=== PATIENT | female | born 1950 | race Caucasian/White ===

== ENCOUNTER 2019-03-22 05:44 | Day surgery (SDC) | payer MEDICARE, BC ==
[2019-03-22] VITALS (9 sets, daily range): BP systolic 125–150; BP diastolic 64–80; PULSE 57–64; RESP 12–18; Ht 152.4 cm; Wt 72.7 kg
[~2019-03-22] VITALS: Ht 152.4 cm; Wt 72.7 kg
--- NOTE | 2019-03-22 03:04 | PREAC ---
Date/Time of Note Date/Time of Note DATE: 03/22/19 TIME: 03:02 Anesthesia Eval and Record Evaluation Time Pre-Procedure Interview DATE: 03/22/19 TIME: 03:02 Age 68 Sex female NPO: 8 hrs Preoperative diagnosis right eye cataract Planned procedure right eye cataract extraction intraocular lens implant by Dr Gamez Past Medical History Past Medical History: Includes Cardio: HTN, Dyslipidemia Endo: Diabetes, Hypothyroid Musculoskeletal: Osteoarthritis GI: GERD (well controlled), Obesity Surgery & Anesthesia Issues No known issue Meds Anticoagulation: No Beta Bree within 24 hr: Yes Reported Medications Folic Acid/Multivits-Min/Lut (Centrum Silver Chewable Tablet) 1 Each Tab.chew, 1 EACH PO DAILY, TAB.CHEW 03/22/19 [place]-3S/Dha/Epa/Fish Oil (FISH OIL 1,200 MG SOFTGEL) 1 Each Capsule, 1 EACH PO DAILY, CAP 03/22/19 Ascorbic Acid* (Vitamin C*) 500 Mg Capsule.sa, 1000 MG PO DAILY, CAP 03/22/19 Cyanocobalamin* (Vitamin B12*) 500 Mcg Tab, 1000 MCG PO DAILY, TAB 03/22/19 Levothyroxine Sodium* (Levoxyl*) 75 Mcg Tablet, 75 MCG PO BEFORE BREAKFAST, #30 TAB 03/22/19 Omeprazole* (Omeprazole*) 40 Mg Capsule., 40 MG PO DAILY, #30 CAP 03/22/19 valAcyclovir Hcl* (valACYclovir Hcl*) 500 Mg Tablet, 2000 MG PO BID PRN for BREAK OUT, TAB 03/22/19 Metoprolol Succinate* (Toprol XL*) 50 Mg Tab.er.24h, 50 MG PO QHS, #30 TAB 03/22/19 Losartan-Hydrochlorothiazide (Losartan-HCTZ) 100-25 Mg Tab, 1 TAB PO DAILY, TAB 03/22/19 Sitagliptin* (Januvia*) 100 Mg Tablet, 100 MG PO DAILY, #30 TAB 03/22/19 Metformin Hcl* (Metformin Hcl*) 500 Mg Tablet, 500 MG PO WITH BREAKFAST DINNE, #60 TAB 03/22/19 Atorvastatin Calcium (Atorvastatin Calcium) 10 Mg Tablet, 10 MG PO QHS, #30 TAB 03/22/19 Discontinued Reported Medications Omeprazole* (Omeprazole*) 40 Mg Capsule., 40 MG PO DAILY, #30 CAP 04/27/16 Metformin* (Glucophage*) 500 Mg Tab, 500 MG PO WITH LUNCH DINNER, #60 TAB 04/27/16 Metformin* (Glucophage*) 500 Mg Tab, 500 MG PO WITH BREAKFAST, #30 TAB 04/27/16 Metformin Hcl* (Metformin Hcl*) 500 Mg Tablet, 500 MG PO WITH MEALS, #90 TAB 04/27/16 Metformin Hcl* (Metformin Hcl*) 500 Mg Tablet, 500 MG PO WITH BREAKFAST DINNE, #60 TAB 04/27/16 Losartan-Hydrochlorothiazide (Losartan-HCTZ) 100-25 Mg Tab, 1 TAB PO DAILY, TAB 04/27/16 Metoprolol Tartrate* (Lopressor*) 25 Mg Tab, 25 MG PO BID, #60 TAB 04/27/16 Glipizide (Glipizide) 5 Gm Powder 02/06/10 Levothyroxine Sodium* (Synthroid*) 50 Mcg Tablet 02/06/10 Current Medications Moxifloxacin HCl (Vigamox) 1 drop ONCE ONCE OPER ; Start 03/22/19 at 07:00; Stop 03/22/19 at 07:01 Cyclopentolate HCl (Cyclogyl 2% Oph) 1 drop Q5 MIN X 3 OPER ; Start 03/22/19 at 07:00 Phenylephrine HCl (Ak-Dilate 10%) 1 drop Q5 MIN X3 OPER ; Start 03/22/19 at 07:00 Nepafenac ([place] Oph) 1 drop Q5 MIN X3 OPER ; Start 03/22/19 at 07:00 Meds reviewed: Yes Allergies Coded Allergies: No Known Drug Allergy (Verified Allergy, Unknown, 03/22/19) Allergies Reviewed: Yes Labs/Studies Labs Reviewed: Reviewed by anesthesiologist test: N/A Studies: ECG Pre-procedure Exam Airway: Adequate mouth opening, Adequate thyromental dist Mallampati: Mallampati II Teeth: Normal Lung: Normal Heart: Normal ASA Physical Status ASA physical status: 3 Emergency: None Planned Anesthetic General/MAC: MAC, TIVA Planned Pain Management Local by surgeon Pre-operative Attestations Prior to commencing anesthesia and surgery, the patient was re-evaluated, there was verification of: *The patient's identity *The results of appropriate recent lab work and preoperative vital signs *The above evaluation not changing prior to induction *Anesthetic plan, risk benefits, alternative and complications discussed with patient/family; questions answered; patient/family understands, accepts and wishes to proceed. SARAHI FISHER Mar 22, 2019 03:04
[~2019-03-22 05:44] MED LIST: ASCO500C7 PO; ATOR10TA65 PO; CYAN500T46 PO; FOLI1TAB5 PO; GLIP5POW2; LEVO50TA89; LEVO75TA65 PO; LOSA1TAB25 PO; METF-849 PO; METF500T24 PO; METO-319 PO; METO-448 PO; OMEG-179 PO; OMEP40CA6 PO; SITA100T11 PO; VALA500T PO
[2019-03-22] MEDS: PHENYLephrine 10% 5 ML OPH OPER SCH ×2 (06:36→08:49)
[2019-03-22] MEDS ORDERED: LIDOCAINE 1% (MPF) 30 ML INJ ONE (06:53)
[2019-03-22] MEDS ORDERED: TIMOLOL 0.5% 5 ML OPH ONE (06:53)
[2019-03-22] MEDS ORDERED: TETRACAINE 0.5% 4 ML OPH ONE (06:53)
[2019-03-22] MEDS ORDERED: NA BICARBONATE 8.4% 50 ML SYG ONE (06:54)
[2019-03-22] MEDS ORDERED: EPINEPHrine 1 MG INJ ONE (06:54)
[2019-03-22] MEDS ORDERED: NA BICARB 50 MEQ/50 ML VIAL ONE (06:55)
[2019-03-22] MEDS ORDERED: LIDOCAINE /PF 2% 10 ML AMPUL ONE (06:55)
[2019-03-22] MEDS ORDERED: NEPAFENAC 0.1% 3 ML OPH OPER SCH (07:00)
[2019-03-22] MEDS ORDERED: MOXIFLOXACIN 0.5% 3 ML OPH OPER ONE (07:00)
[2019-03-22] MEDS ORDERED: CYCLOPENTOLATE 2% 2 ML OPH OPER SCH (07:00)
[2019-03-22] MEDS ORDERED: FENTAnyl 50 MCG/ML VIAL ONE (07:22)
[2019-03-22] MEDS ORDERED: PROPOFOL 20 ML ONE (07:22)
--- NOTE | 2019-03-22 07:26 | HPN ---
Date/Time of Note Date/Time of Note DATE: 03/22/19 TIME: 07:25 Interval H&P Admission Note Pt. seen H&P reviewed: No system changes CONY ALVES MD Mar 22, 2019 07:26
[2019-03-22] MEDS ORDERED: CARBACHOL 0.01% 1.5 ML OPH INJ ONE (07:27)
[2019-03-22] MEDS ORDERED: ONDANSETRON 4 MG INJ IV PRN (07:30)
[2019-03-22] MEDS ORDERED: FENTAnyl 50 MCG/ML VIAL IV PRN ×3 (07:30)
[2019-03-22] MEDS ORDERED: hydrALAzine 20 MG INJ IV PRN (07:30)
[2019-03-22] MEDS ORDERED: LABETALOL HCL 20MG INJ IV PRN (07:30)
[2019-03-22] MEDS ORDERED: OXYCODONE/ACETAMINOPHEN (5/325) TAB PO PRN ×2 (07:30)
[2019-03-22] MEDS ORDERED: NA HYALURONATE/CHONDROITIN 0.5 ML SYG ONE (08:27)
--- NOTE | 2019-03-22 08:34 | SIPON ---
Date/Time of Note Date/Time of Note DATE: 03/22/19 TIME: 08:26 Operative Report Preoperative Diagnosis nuclear sclerotic cataract right eye Postoperative Diagnosis same Operation/Procedure Performed KPEE with posterior chamber lrns Surgeon see signature line accounts payable assistant none Anesthesia: MAC Estimated blood loss: none Transfusion Required none Specimen none Grafts/Implants posterior chamber lens implant CONY ALVES MD Mar 22, 2019 08:34
[2019-03-22] MEDS ORDERED: BUPIVACAINE 0.75% (MPF) 10 ML INJ INJ ONE (09:38)
--- NOTE | 2019-03-22 10:29 | PAC ---
Date/Time of Note Date/Time of Note DATE: 03/22/19 TIME: 10:29 Post-Anesthesia Notes Post-Anesthesia Note Last documented vital signs Vital Signs Date Temp Pulse Resp B/P (MAP) Pulse Ox O2 O2 Flow FiO2 Time Delivery Rate 03/22/19 96.9 57 18 135/66 95 09:05 (89) 03/22/19 Room Air 08:55 Activity: WNL Respiratory function: WNL Cardiovascular function: WNL Mental status: Baseline Pain reasonably controlled: Yes Hydration appropriate: Yes Nausea/Vomiting absent: Yes SARAHI FISHER Mar 22, 2019 10:29
--- NOTE | 2019-03-22 15:46 | OPR ---
DATE OF OPERATION: 03/22/2019 SURGEON: Cony Gamez MD BISTRO SERVER: None. PREOPERATIVE DIAGNOSIS: Senile nuclear sclerotic cataract right eye. POSTOPERATIVE DIAGNOSIS: Senile nuclear sclerotic cataract, right eye. OPERATION: Kelman phacoemulsification with implantation of intraocular lens right eye. DESCRIPTION OF PROCEDURE: Following standard preparation and draping of the patient, a lid speculum was placed for immobilization of the lids. A SuperBlade incision was made at the corneal limbal junc tion for access into the anterior chamber. Approximately 0.03 mL of nonpreserved 1% Xylocaine was in stilled into the anterior chamber, and after approximately 5 to 10 seconds, this was replaced with Vi scoat. A clear corneal incision was then made using the 3.2 mm keratome, following which an anterior circular capsulorrhexis was made. The major portion of the lens cortex and nucleus were then disloc ated from the capsular bag using hydrodissection. The KPE tip was introduced into the eye and contro lling tumbling of the lens with a 2-handed technique, the major portion of the lens cortex and nucleu s was removed, maintaining the lens in the plane of the iris. The remaining cortical material was re moved via the irrigating aspirating instrument. The capsular bag and the anterior chamber were now r eformed using Viscoat. The proper power lens was then placed in the capsular bag. The viscoelastic was then removed from the eye and the eye reformed with balanced salt solution. One 10-0 Vicryl sutu re was then used to ensure closure of the corneal incision. The eye was reformed to normal pressure using balanced salt solution. The eye and cul-de-sacs were now simply flooded with 5% Betadine solut ion. One drop of Vigamox and 1 drop of Betagan solution were instilled into the eye. A light pressu re dressing was applied, and the patient was returned to the recovery room in satisfactory condition. Dictated By: CONY NORMAN/WELLINGTON Conf#: [id number] DID#: [id number]
== END 2019-03-22 09:30 | disposition home or self-care (01) ==
LOC: SDS 05:44
PROVIDERS: ATTEND Ophthalmology
DX: H25.12 Age-related nuclear cataract, left eye (principal); I10 Essential (primary) hypertension; E03.9 Hypothyroidism, unspecified; E11.9 Type 2 diabetes mellitus without complications; E78.5 Hyperlipidemia, unspecified
CPT/HCPCS: 66984; 82962; J0171; J3010; V2632

== ENCOUNTER 2019-06-07 09:41 | Day surgery (SDC) | payer MEDICARE, BC ==
[2019-06-07] VITALS (8 sets, daily range): BP systolic 100–180; BP diastolic 46–80; PULSE 60–78; RESP 15–24; Ht 149.9 cm; Wt 72.8 kg
[~2019-06-07] VITALS: Ht 149.9 cm; Wt 72.8 kg
[~2019-06-07 09:41] MED LIST changes: -CYAN500T46 PO; +CYAN500T55 PO; +CYCLOPENTOLATE 2% 2 ML OPH LEFT EYE SCH; -GLIP5POW2; +IBUP800T48 PO; -LEVO50TA89; -METF-849 PO; -METO-448 PO; +METO10TA92 PO; +NEPAFENAC 0.1% 3 ML OPH LEFT EYE SCH; +OMEP40CA38 PO; -OMEP40CA6 PO
[2019-06-07] MEDS: MOXIFLOXACIN 0.5% 3 ML OPH LEFT EYE ONE ×2 (10:53→14:41)
[2019-06-07] MEDS: PHENYLephrine 10% 5 ML OPH LEFT EYE SCH ×2 (10:53→14:41)
[2019-06-07] MEDS ORDERED: TIMOLOL 0.5% 5 ML OPH ONE (13:46)
[2019-06-07] MEDS ORDERED: NA BICARB 50 MEQ/50 ML VIAL ONE (13:46)
[2019-06-07] MEDS ORDERED: LIDOCAINE /PF 2% 10 ML AMPUL ONE (13:46)
[2019-06-07] MEDS ORDERED: EPINEPHrine 1 MG INJ ONE (13:46)
[2019-06-07] MEDS ORDERED: TETRACAINE 0.5% 4 ML OPH ONE (13:46)
[2019-06-07] MEDS ORDERED: LIDOCAINE 1% (MPF) 30 ML INJ ONE (13:46)
[2019-06-07] MEDS ORDERED: LIDOCAINE 2% (SDV) 5 ML INJ ONE (13:58)
[2019-06-07] MEDS ORDERED: FENTAnyl 50 MCG/ML VIAL ONE (13:58)
[2019-06-07] MEDS ORDERED: PROPOFOL 20 ML ONE (13:58)
[2019-06-07] MEDS ORDERED: MIDAZOLAM 1 MG/ML 2 ML INJ ONE (13:58)
[2019-06-07] MEDS ORDERED: HYDROmorphONE 1 MG/5 ML IV SYRINGE IV PRN ×2 (14:00)
[2019-06-07] MEDS ORDERED: DIPHENHYDRAMINE 50 MG INJ IV PRN (14:00)
[2019-06-07] MEDS ORDERED: hydrALAzine 20 MG INJ IV PRN (14:00)
[2019-06-07] MEDS ORDERED: ONDANSETRON 4 MG INJ IV PRN (14:00)
[2019-06-07] MEDS ORDERED: OXYCODONE/ACETAMINOPHEN (5/325) TAB PO PRN (14:00)
[2019-06-07] MEDS ORDERED: LABETALOL HCL 20MG INJ IV PRN (14:00)
[2019-06-07] MEDS ORDERED: hydrALAzine 20 MG INJ ONE (14:10)
[2019-06-07] MEDS ORDERED: BUPIVACAINE 0.75% (MPF) 10 ML INJ INJ ONE (14:41)
== END 2019-06-07 16:50 | disposition home or self-care (01) ==
LOC: SDS 09:41
PROVIDERS: ATTEND Ophthalmology
DX: H25.12 Age-related nuclear cataract, left eye (principal); I10 Essential (primary) hypertension; E78.5 Hyperlipidemia, unspecified; E11.9 Type 2 diabetes mellitus without complications; Z79.84 Long term (current) use of oral hypoglycemic drugs; E66.9 Obesity, unspecified; Z68.32 Body mass index [BMI] 32.0-32.9, adult; E03.9 Hypothyroidism, unspecified
CPT/HCPCS: 66984; 82962; 93005; J0171; J0360; J1170; J2250; J2405; J3010; V2632

== ENCOUNTER 2019-06-08 06:16 | Emergency (ER) | payer MEDICARE, BC ==
[~2019-06-08] VITALS: Ht 152.4 cm; Wt 72.3 kg
[~2019-06-08 06:16] MED LIST changes: -CYCLOPENTOLATE 2% 2 ML OPH LEFT EYE SCH; -NEPAFENAC 0.1% 3 ML OPH LEFT EYE SCH
[2019-06-08 06:17] VITALS: Ht 152.4 cm; Wt 72.3 kg
[2019-06-08] MEDS ORDERED: KETOROLAC 15 MG INJ IV STA (06:46)
[2019-06-08] MEDS ORDERED: METOCLOPRAMIDE 10 MG INJ IV ONE (07:00)
[2019-06-08] MEDS ORDERED: SOD CHLORIDE 0.9% 500 ML IV ONE (07:00)
[2019-06-08 08:15] VITALS: BP 164/82; PULSE 72; RESP 16
== END 2019-06-08 08:15 | disposition home or self-care (01) ==
LOC: E/R 06:16
DX: G44.209 Tension-type headache, unspecified, not intractable (principal); I10 Essential (primary) hypertension; E11.9 Type 2 diabetes mellitus without complications; Z79.84 Long term (current) use of oral hypoglycemic drugs
CPT/HCPCS: 70450; 96361; 96374; 96375; 99285; J1885; J2765; J7040